=== PATIENT | male | born 1975 | race Caucasian/White ===

== ENCOUNTER 2017-05-20 07:43 | Emergency (ER) | payer OTHER ==
[~2017-05-20 07:43] MED LIST: AMLO5TAB96; ASPI81; TAB-TAB
[2017-05-20] MEDS ORDERED: BENA1TAB44 PO (07:50)
[2017-05-20] MEDS ORDERED: FERR325C PO (07:50)
[2017-05-20] MEDS ORDERED: ASPI81CH CHEW (07:50)
[2017-05-20 07:51] VITALS: BP 154/72; PULSE 117; RESP 26; TEMP 98.5; O2SAT 95
[2017-05-20] MEDS ORDERED: SODIUM CHLORIDE 0.9% FLUSH 10 ML FLUSH IVF PRN (08:00)
[2017-05-20] MEDS ORDERED: DILTIAZEM HCL 25 MG/5 ML VIAL IV PUSH ONE (08:00)
[2017-05-20] MEDS ORDERED: SODIUM CHLORIDE 0.9% FLUSH 5 ML FLUSH IV FLUSH PRN (08:00)
--- NOTE | 2017-05-20 08:10 | PD ---
HPI . Dysrhythmia Chief Complaint: Cardiac Complaint Time Seen by Provider: 07:45 Travel History International Travel<30 days: No Contact w/Intl Traveler<30days: Yes Name of Country Traveled to: [place] RECENTLY TRAVELED TO [facility] Traveled to known affect area: No History of Present Illness HPI This patient presents with the acute onset of a cardiac dysrhythmia. It started this morning. It is associated with diaphoresis. 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 Patient states that he has a history of this but has been off of medications and a normal sinus rhythm for the last 2 years. He does not know what might have caused his abnormal rhythm this morning. Associated symptoms include some mild chest discomfort and diaphoresis. Symptoms are moderate. PFSH Past Medical History Blood Disorders: No Cancer: No Cardiovascular Problems: Yes (hx of afib ) Chemotherapy: No Endocrine: No Genitourinary: No Hypertension: Yes Immune Disorder: No Musculoskeletal: No Neurologic: No Psychiatric: No Reproductive: No Respiratory: No Radiation Therapy: No Past Surgical History Abdominal Surgery: Yes (GASTRIC BYPASS) AICD: No Arteriovenous Shunt: No Cholecystectomy: Yes Insulin Pump: No Joint Replacement: No Pacemaker: No Social History Alcohol Use: Yes (1-2 PER WEEK, MORE ON WEEKENDS) Tobacco Use: No (quit ) Substance Use: No Allergies-Medications (Allergen,Severity, Reaction): Coded Allergies: No Known Allergies (Verified , 05/20/17) Reported Meds & Prescriptions Reported Meds & Active Scripts Active Reported Aspirin 81 Mg Chew 81 Mg CHEW DAILY Iron (Ferrous Sulfate) 325 Mg Cap 325 Mg PO DAILY Lotensin Hct (Benazepril-Hydrochlorothiazide) 20-12.5 Mg Tab 1 Tab PO DAILY Review of Systems Except as stated in HPI: all other systems reviewed are Neg General / Constitutional: Positive: Other (diaphoresis), No: Fever, Chills Cardiovascular: Positive: Chest Pain or Discomfort, Palpitations Respiratory: No: Shortness of Breath Physical Exam Narrative GENERAL: Markedly obese. No acute distress. Lucid. SKIN: Warm and dry. HEAD: Atraumatic. Normocephalic. EYES: Pupils equal and round. Extraocular movements intact. ENT: No nasal bleeding or discharge. Mucous membranes pink and moist. NECK: Trachea midline. Neck supple. CARDIOVASCULAR: Irregularly irregular rate and rhythm. RESPIRATORY: No accessory muscle use. Lungs clear. GASTROINTESTINAL: Abdomen soft, non-tender, nondistended. MUSCULOSKELETAL: No obvious deformities. No edema. NEUROLOGICAL: Awake and alert. No obvious cranial nerve deficits. Motor grossly within normal limits. Normal speech. PSYCHIATRIC: Appropriate mood and affect; insight and judgment normal. Data Data Last Documented VS Vital Signs Date Time Temp Pulse Resp B/P (MAP) Pulse Ox O2 Delivery O2 Flow Rate FiO2 05/20/17 08:12 73 18 144/83 (103) 95 05/20/17 08:01 Room Air 05/20/17 07:51 98.5 Orders Orders Ecg Monitoring (05/20/17 07:47) Blood Pressure (05/20/17 07:47) Iv Access Insert/Monitor (05/20/17 07:47) Oximetry (05/20/17 07:47) Vital Signs (05/20/17 07:47) Diltiazem Inj (Cardizem Inj) (05/20/17 08:00) Sodium Chloride 0.9% Flush (Ns Flush) (05/20/17 08:00) Basic Metabolic Panel (Bmp) (05/20/17 07:49) Ckmb (Isoenzyme) Profile (05/20/17 07:49) Complete Blood Count With Diff (05/20/17 07:49) Magnesium (Mg) (05/20/17 07:49) Prothrombin Time / Inr (Pt) (05/20/17 07:49) Act Partial Throm Time (Ptt) (05/20/17 07:49) Troponin I (05/20/17 07:49) Chest, Single Ap (05/20/17 07:49) Sodium Chloride 0.9% Flush (Ns Flush) (05/20/17 08:00) Diltiazem (Cardizem) (05/20/17 09:15) Labs Laboratory Tests Test 05/20/17 08:04 White Blood Count 7.9 TH/MM3 Red Blood Count 5.17 MIL/MM3 Hemoglobin 14.9 GM/DL Hematocrit 45.5 % Mean Corpuscular Volume 88.1 FL Mean Corpuscular Hemoglobin 28.9 PG Mean Corpuscular Hemoglobin Concent 32.8 % Red Cell Distribution Width 13.0 % Platelet Count 331 TH/MM3 Mean Platelet Volume 6.8 FL Neutrophils (%) (Auto) 64.1 % Lymphocytes (%) (Auto) 26.5 % Monocytes (%) (Auto) 6.9 % Eosinophils (%) (Auto) 2.0 % Basophils (%) (Auto) 0.5 % Neutrophils # (Auto) 5.1 TH/MM3 Lymphocytes # (Auto) 2.1 TH/MM3 Monocytes # (Auto) 0.5 TH/MM3 Eosinophils # (Auto) 0.2 TH/MM3 Basophils # (Auto) 0.0 TH/MM3 CBC Comment DIFF FINAL Differential Comment Prothrombin Time 10.2 SEC Prothromb Time International Ratio 0.9 RATIO Activated Partial Thromboplast Time 28.2 SEC Blood Urea Nitrogen 13 MG/DL Creatinine 0.84 MG/DL Random Glucose 132 MG/DL Calcium Level 8.8 MG/DL Magnesium Level 2.2 MG/DL Sodium Level 140 MEQ/L Potassium Level 4.0 MEQ/L Chloride Level 107 MEQ/L Carbon Dioxide Level 26.1 MEQ/L Anion Gap 7 MEQ/L Estimat Glomerular Filtration Rate 101 ML/MIN Total Creatine Kinase 92 U/L Troponin I LESS THAN 0.02 NG/ML MDM Medical Decision Making Medical Screen Exam Complete: Yes Emergency Medical Condition: Yes Medical Record Reviewed: Yes (past medical history is significant for hypertension, obesity, hyperlipidemia, and with RVR and tobacco abuse. ) Interpretation(s) Atrial fibrillation with a rate of 109. No ST segment elevation or depression. Differential Diagnosis Differential diagnosis of tachycardia includes but is not limited to PSVT, atrial fibrillation with a rapid ventricular response, sinus tachycardia (due to hypovolemia, anemia, thyrotoxicosis, PE) Narrative Course This patient presents in atrial fibrillation. Onset was this morning. A Cardizem bolus has been ordered. Rate has been controlled with a single bolus of Cardizem. He was subsequently given an oral dose of Cardizem. CBC & BMP Diagram 05/20/17 08:04 Calcium Level 8.8, Magnesium Level 2.2 Cardiac enzymes were negative. Chest x-ray is negative. The patient will be discharged to home on oral Cardizem and a full dose of aspirin per the recommendation of Dr. Finn. Critical Care Narrative Aggregate critical care time was 35 minutes. Time to perform other separately billable procedures was not included in the critical care time. My time did not include minutes spent treating any other patients simultaneously or on activities that did not directly contribute to the patient's treatment. The services I provided to this patient were to treat and/or prevent clinically significant deterioration due to AF with RVR I provided critical care services requiring my management, as noted below: Chart data review, documentation time, medication orders and management, vital sign assessments/reviewing monitor data, ordering and reviewing lab tests, ordering and interpreting/reviewing x-rays and diagnostic studies, care of the patient and discussion of the patient with the admitting physicians Physician Communication Physician Communication Dr. Finn, senior site manager, recommends a full ASA/day and oral Cardizem. He will see the patient in the near future as an OP. Diagnosis Primary Impression: Palpitations Additional Impression: Atrial fibrillation with RVR Referrals: Ramon Finn MD 3 days Patient Instructions: A-fib (Atrial Fibrillation) (DC), General Instructions Scripts Aspirin (Aspirin) 325 Mg Tab 325 MG PO DAILY, #30 TAB 0 Refills Prov: Meghana Parry MD 05/20/17 Diltiazem ER 24 HR (Cardizem LA) 240 Mg Teja 240 MG PO DAILY, #30 TAB 0 Refills Prov: Meghana Parry MD 05/20/17 Disposition: DISCHARGE HOME Condition: Stable Meghana Parry MD May 20, 2017 08:10
[2017-05-20 08:12] VITALS: BP 144/83; PULSE 73; RESP 18; O2SAT 95
[2017-05-20 08:31] LABS: AUTOMATED NEUTROPHIL # 5.1 TH/MM3 (1.8-7.7); BASOPHIL % 0.5 % (0.0-2.0); EOSINOPHIL # 0.2 TH/MM3 (0-0.4); HEMATOCRIT 45.5 % (39.0-51.0); HEMO FLAGS DIFF FINAL; LYMPH % 26.5 % (9.0-44.0); LYMPHOCYTE # 2.1 TH/MM3 (1.0-4.8); MEAN CELL VOLUME 88.1 FL (80.0-100.0); MEAN CORPUSCULAR HEMOGLOBIN 28.9 PG (27.0-34.0); MEAN CORPUSCULAR HGB CONC 32.8 % (32.0-36.0); MONO % 6.9 % (0.0-8.0); NEUT % 64.1 % (16.0-70.0); PLATELET COUNT 331 TH/MM3 (150-450); RED BLOOD COUNT 5.17 MIL/MM3 (4.50-5.90); WHITE BLOOD COUNT 7.9 TH/MM3 (4.0-11.0)
[2017-05-20 08:40] LABS: APTT (PATIENT) 28.2 SEC (24.3-30.1); INTERNATIONAL NORMALIZED RATIO 0.9 RATIO; PROTHROMBIN TIME - PATIENT 10.2 SEC (9.8-11.6)
[2017-05-20 08:59] LABS: ANION GAP 7 MEQ/L (5-15); BICARBONATE 26.1 MEQ/L (21.0-32.0); BLOOD UREA NITROGEN 13 MG/DL (7-18); CHLORIDE 107 MEQ/L (98-107); GLOMERULAR FILTRATION RATE 101 ML/MIN (>89); MAGNESIUM 2.2 MG/DL (1.5-2.5); SODIUM (NA) 140 MEQ/L (136-145)
[2017-05-20 09:06] LABS: CREATINE KINASE 92 U/L (39-308)
[2017-05-20] MEDS ORDERED: DILTIAZEM HCL 60 MG TAB PO ONE (09:15)
--- NOTE | 2017-05-20 09:20 | RADRPT ---
EXAM DATE/TIME: 05/20/2017 08:34 [facility] COMPARISON: No previous studies available for comparison. INDICATIONS : Short of breath and chest pain starting this morning. MEDICAL HISTORY : Hypertension. SURGICAL HISTORY : None. ENCOUNTER: Initial ACUITY: 1 day PAIN SCORE: 2/10 LOCATION: Bilateral chest FINDINGS: A single view of the chest demonstrates the lungs to be symmetrically aerated without evidence of mas s, infiltrate or effusion. The cardiomediastinal contours are unremarkable. Osseous structures are intact. CONCLUSION: No acute disease. Burak Davila Jr., MD on May 20, 2017 at 9:18 Board Certified Radiologist. This report was verified electronically.
[2017-05-20] MEDS ORDERED: DILT1TAB2 PO (09:26)
[2017-05-20] MEDS ORDERED: ASPI325T PO (09:26)
--- NOTE | 2017-05-20 19:31 | EKG ---
Date Performed: 05/20/2017 Time Performed: 07:45:40 PTAGE: 42 years EKG: ATRIAL FIBRILLATION WITH RAPID VENTRICULAR RESPONSE ABNORMAL RHYTHM ECG Compared to the PREVIOUS TRACING SR no longer present DOCTOR: Jorge L Miles Interpretating Date/Time 05/20/2017 19:30:31
== END 2017-05-20 10:09 | disposition home or self-care (01) ==
LOC: NEPC 07:43
DX: I48.91 Unspecified atrial fibrillation (principal); I10 Essential (primary) hypertension; Z87.891 Personal history of nicotine dependence
CPT/HCPCS: 71010; 80048; 82550; 83735; 84484; 85025; 85610; 85730; 93005; 96374